=== PATIENT | male | born 1990 | race Caucasian/White ===

== ENCOUNTER 2016-11-20 21:05 | Emergency (ER) | payer SELFPAY ==
[~2016-11-20] VITALS: Ht 177.8 cm; Wt 90.7 kg
[~2016-11-20 21:05] MED LIST: ALBUTEROL0.09 MG/A2 IH; AMOXICILLIN500 MG PO; ANAPROX DS550 MG PO; ANTIVERT25 MG PO; ATARAX25 MG PO; ATIVAN0.5 MG PO; AUGMENTIN 875 M1 TAB PO; AUGMENTIN 875-875 MG PO; AUGMENTIN 875875 MG PO; BACTRIM DS 8001 TA1 PO; CEPHALEXIN500 M1 PO; CIPRO500 MG PO; CIPROFLOXACIN500 MG PO; CLARITIN10 MG PO; DIFLUCAN100 MG PO; DOXYCYCLINE HY100 M3 PO; DOXYCYCLINE MO100 MG PO; HYDROCODONE BIT1 T11 PO; IBU-8800 MG PO; KEFLEX500 M1 PO; KEFLEX500 MG PO; MEDROL DOSEPAK4 MG PO; MOTRIN800 MG PO; Motrin,Rufen800 MG PO; NAPROSYN500 MG PO; NKHM; NO DAILY MEDS; Orphenadrine C100 MG PO; PREDNISONE20 M1 PO; PREDNISONE20 MG PO; PROAIR HFA8.5 GM INH; PROVENTIL0.09 MG/AC IH; SEPTRA DS 800 M1 TAB PO; TORADOL10 MG PO; TRAMADOL HCL50 MG PO; VICODIN 5/500 505 MG PO; VICODIN 500 MG-1 TAB PO; VISTARIL25 MG PO; VOLTAREN50 M1 PO; ZANTAC150 MG PO; ZITHROMAX Z PA250 MG PO; ZOFRAN ODT4 MG SL; ZOFRAN ODT8 MG PO
[2016-11-20 21:24] VITALS: BP 162/82
== END 2016-11-20 23:27 | disposition home or self-care (01) ==
LOC: ED 21:05
DX: Z11.3 Encounter for screening for infections with a predominantly sexual mode of transmission (principal); L24.5 Irritant contact dermatitis due to other chemical products; Z87.891 Personal history of nicotine dependence

== ENCOUNTER → 2017-01-13 | Outpatient (CLI) | payer OTHER | END | disposition home or self-care (01) | LOC: RAD 11:49 | DX: M48.07 Spinal stenosis, lumbosacral region (principal); M43.17 Spondylolisthesis, lumbosacral region; M43.16 Spondylolisthesis, lumbar region ==

== ENCOUNTER 2017-02-13 13:49 | Emergency (ER) | payer SELFPAY ==
[~2017-02-13] VITALS: Ht 177.8 cm; Wt 77.1 kg
[2017-02-13 13:54] VITALS: BP 148/90
[2017-02-13] MEDS ORDERED: Motrin,Rufen800 MG PO (16:17)
== END 2017-02-13 16:25 | disposition home or self-care (01) ==
LOC: ED 13:49
DX: S30.0XXA Contusion of lower back and pelvis, initial encounter (principal); R21 Rash and other nonspecific skin eruption; Z87.891 Personal history of nicotine dependence; W10.8XXA Fall (on) (from) other stairs and steps, initial encounter; Y93.89 Activity, other specified; Y92.89 Other specified places as the place of occurrence of the external cause; Y99.9 Unspecified external cause status

== ENCOUNTER 2017-06-06 17:39 | Emergency (ER) | payer OTHER ==
[~2017-06-06] VITALS: Wt 80.7 kg
[2017-06-06 17:51] VITALS: BP 130/84
[2017-06-06] MEDS ORDERED: NAPROSYN500 MG PO (17:54)
[2017-06-06] MEDS ORDERED: CHLORZOXAZONE500 M2 PO (17:54)
== END 2017-06-06 19:48 | disposition home or self-care (01) ==
LOC: ED 17:39
DX: M54.42 Lumbago with sciatica, left side (principal); R03.0 Elevated blood-pressure reading, without diagnosis of hypertension; Z87.891 Personal history of nicotine dependence

== ENCOUNTER 2017-07-06 11:50 | Emergency (ER) | payer SELFPAY ==
[~2017-07-06] VITALS: Ht 180.3 cm; Wt 81.6 kg
[~2017-07-06 11:50] MED LIST changes: +CHLORZOXAZONE500 M2 PO
[2017-07-06 11:57] VITALS: BP 124/85
[2017-07-06] MEDS ORDERED: ZITHROMAX250 MG PO (12:22)
== END 2017-07-06 12:30 | disposition home or self-care (01) ==
LOC: ED 11:50
DX: Z20.2 Contact with and (suspected) exposure to infections with a predominantly sexual mode of transmission (principal); Z87.891 Personal history of nicotine dependence; Z79.899 Other long term (current) drug therapy

== ENCOUNTER 2017-08-14 19:18 | Emergency (ER) | payer SELFPAY ==
[~2017-08-14] VITALS: Ht 180.3 cm; Wt 81.6 kg
[~2017-08-14 19:18] MED LIST changes: +ZITHROMAX250 MG PO
[2017-08-14 19:22] VITALS: BP 124/91
[2017-08-14] MEDS ORDERED: MEDROL DOSEPAK4 MG PO (19:36)
[2017-08-14 20:18] LABS: BILIRUBIN NEGATIVE (NEGATIVE); BLOOD NEGATIVE (NEGATIVE); CLARITY CLEAR (CLEAR); COLOR YELLOW (YELLOW); GLUCOSE NEGATIVE (NEGATIVE); KETONE NEGATIVE (NEGATIVE); LEUKO ESTERASE NEGATIVE (NEGATIVE); NITRITE NEGATIVE (NEGATIVE); SPECIFIC GRAVITY 1.015 (1.005-1.030); UROBILINOGEN 0.2 E.U./dl (0.2-1.0)
[2017-08-14 20:31] LABS: BACTERIA TRACE; RBC 0-2 rbc/hpf (0-2); WBC 0-2 wbc/hpf (0-5)
== END 2017-08-14 20:35 | disposition home or self-care (01) ==
LOC: ED 19:18
PROVIDERS: Nurse Practitioner Family
DX: N48.89 Other specified disorders of penis (principal); Z79.899 Other long term (current) drug therapy

== ENCOUNTER 2017-08-17 15:25 | Emergency (ER) | payer SELFPAY ==
[~2017-08-17] VITALS: Ht 180.3 cm; Wt 81.6 kg
[2017-08-17 15:25] VITALS: BP 143/76
== END 2017-08-17 16:42 | disposition home or self-care (01) ==
LOC: ED 15:25
DX: R21 Rash and other nonspecific skin eruption (principal); Z87.891 Personal history of nicotine dependence

== ENCOUNTER 2017-10-01 07:41 | Emergency (ER) | payer SELFPAY ==
[~2017-10-01] VITALS: Ht 180.3 cm; Wt 82.6 kg
[2017-10-01 07:45] VITALS: BP 132/80
[2017-10-01 08:28] LABS: BASO % 0.5 % (0.0-1.0); EOS # 0.1 10*3/uL (0.0-0.4); EOS % 1.9 % (1.0-4.0); HEMATOCRIT 41.7 % (42.0-52.0); HEMOGLOBIN 14.1 g/dl (14.0-18.0); LYMPH % 27.3 % (27.0-41.0); MEAN CELL VOLUME 88.2 fl (80.0-94.0); MEAN CORPUSCULAR HGB 29.8 pg (27.0-31.0); MEAN CORPUSCULAR HGB CONC 33.8 g/dl (33.0-37.0); MEAN PLATELET VOLUME 10.5 fl (9.6-12.3); MONO # 0.7 10*3/uL (0.1-1.0); MONO % 9.2 % (3.0-9.0); NEUT # 4.4 10*3/uL (2.3-7.9); PLATELET COUNT AUTOMATED 169 10*3/uL (130-400); RED BLOOD COUNT 4.73 10*6/uL (4.50-5.90); RED CELL DISTRI WIDTH 11.9 % (0-14.5); WHITE BLOOD COUNT 7.3 10*3/uL (4.8-10.8)
[2017-10-01 08:37] LABS: ACT PARTIAL THROMBO TIME 25.5 SECONDS (20.8-31.5)
[2017-10-01 08:44] LABS: ALBUMIN 4.1 gm/dl (3.1-4.5); ALKALINE PHOSPHATASE 67 U/L (45-117); BUN 14 mg/dl (7-24); CHLORIDE 105 mmol/L (98-107); CREATININE 1.07 mg/dL (0.70-1.30); SGOT/AST 24 IU/L (3-35); SGPT/ALT 39 U/L (12-78); SODIUM 140 mmol/L (136-145); TOTAL PROTEIN 7.1 gm/dL (6.4-8.2)
[2017-10-01 08:53] LABS: TROPONIN I < 0.015 ng/ml (<0.045)
== END 2017-10-01 09:37 | disposition home or self-care (01) ==
LOC: ED 07:41
PROVIDERS: Student in an Organized Health Care Education/Training Program
DX: R20.2 Paresthesia of skin (principal); F10.10 Alcohol abuse, uncomplicated; Z79.899 Other long term (current) drug therapy

== ENCOUNTER 2018-02-02 02:10 | Emergency (ER) | payer SELFPAY ==
[~2018-02-02] VITALS: Ht 177.8 cm; Wt 77.1 kg
[2018-02-02 02:10] VITALS: BP 140/84
[2018-02-02 02:40] LABS: BASO % 0.4 % (0.0-1.0); EOS # 0.2 10*3/uL (0.0-0.4); EOS % 2.1 % (1.0-4.0); HEMATOCRIT 43.8 % (42.0-52.0); HEMOGLOBIN 14.9 g/dl (14.0-18.0); LYMPH # 3.2 10*3/uL (1.3-4.4); LYMPH % 33.9 % (27.0-41.0); MEAN CELL VOLUME 87.1 fl (80.0-94.0); MEAN CORPUSCULAR HGB 29.6 pg (27.0-31.0); MEAN PLATELET VOLUME 10.6 fl (9.6-12.3); MONO # 1.1 10*3/uL (0.1-1.0); NEUT % 52.2 % (47.0-73.0); PLATELET COUNT AUTOMATED 208 10*3/uL (130-400); RED BLOOD COUNT 5.03 10*6/uL (4.50-5.90); RED CELL DISTRI WIDTH 12.2 % (0-14.5); WHITE BLOOD COUNT 9.6 10*3/uL (4.8-10.8)
[2018-02-02 02:54] LABS: ALKALINE PHOSPHATASE 70 U/L (45-117); BUN 17 mg/dl (7-24); CHLORIDE 106 mmol/L (98-107); CREATININE 1.06 mg/dL (0.70-1.30); LIPASE 137 U/L (73-393); POTASSIUM 3.7 mmol/L (3.5-5.1); SGOT/AST 45 IU/L (3-35); SGPT/ALT 87 U/L (12-78); SODIUM 143 mmol/L (136-145); TOTAL PROTEIN 7.6 gm/dL (6.4-8.2)
[2018-02-02] MEDS ORDERED: OMEPRAZOLE MAGN20 MG PO (04:34)
== END 2018-02-02 05:11 | disposition home or self-care (01) ==
LOC: ED 02:10
PROVIDERS: Student in an Organized Health Care Education/Training Program
DX: R10.13 Epigastric pain (principal); Z87.891 Personal history of nicotine dependence

== ENCOUNTER 2018-06-06 16:18 | Emergency (ER) | payer SELFPAY ==
[~2018-06-06] VITALS: Ht 180.3 cm; Wt 83.9 kg
[2018-06-06 16:18] VITALS: BP 138/90
[~2018-06-06 16:18] MED LIST changes: +OMEPRAZOLE MAGN20 MG PO
[2018-06-06] MEDS ORDERED: SEPTDS PO (16:46)
[2018-06-06] MEDS ORDERED: KEFLEX500 M1 PO (16:46)
== END 2018-06-06 16:51 | disposition home or self-care (01) ==
LOC: ED 16:18
DX: L73.9 Follicular disorder, unspecified (principal); Z87.891 Personal history of nicotine dependence; Z79.899 Other long term (current) drug therapy

== ENCOUNTER 2019-01-22 20:09 | Emergency (ER) | payer SELFPAY ==
[~2019-01-22] VITALS: Ht 180.3 cm; Wt 83.9 kg
[~2019-01-22 20:09] MED LIST changes: +SEPTDS PO
[2019-01-22 20:10] VITALS: BP 134/79
[2019-01-22] MEDS ORDERED: IBU600 M1 PO (20:51)
== END 2019-01-22 21:06 | disposition home or self-care (01) ==
LOC: ED 20:09
DX: L72.3 Sebaceous cyst (principal); J35.8 Other chronic diseases of tonsils and adenoids; Z87.891 Personal history of nicotine dependence; Z79.2 Long term (current) use of antibiotics; Z79.899 Other long term (current) drug therapy

== ENCOUNTER 2019-02-16 14:28 | Emergency (ER) | payer SELFPAY ==
[~2019-02-16] VITALS: Ht 180.3 cm; Wt 86.2 kg
[~2019-02-16 14:28] MED LIST changes: +IBU600 M1 PO
[2019-02-16 14:31] VITALS: BP 128/90
[2019-02-16 14:52] LABS: BILIRUBIN NEGATIVE (NEGATIVE); BLOOD NEGATIVE (NEGATIVE); CLARITY CLEAR (CLEAR); COLOR YELLOW (YELLOW); GLUCOSE NEGATIVE (NEGATIVE); KETONE NEGATIVE (NEGATIVE); LEUKO ESTERASE NEGATIVE (NEGATIVE); NITRITE NEGATIVE (NEGATIVE); PH 6.5 (5.0-9.0); UROBILINOGEN 0.2 E.U./dl (0.2-1.0)
[2019-02-16] MEDS ORDERED: DOXYCYCLINE100 M3 PO (14:53)
[2019-02-16 15:21] LABS: BACTERIA TRACE
== END 2019-02-16 15:23 | disposition home or self-care (01) ==
LOC: ED 14:28
PROVIDERS: Physician Assistant
DX: Z20.2 Contact with and (suspected) exposure to infections with a predominantly sexual mode of transmission (principal)

== ENCOUNTER 2019-09-20 23:25 | Emergency (ER) | payer SELFPAY ==
[~2019-09-20] VITALS: Ht 177.8 cm; Wt 83.9 kg
[~2019-09-20 23:25] MED LIST changes: +DOXYCYCLINE100 M3 PO
[2019-09-21 00:01] LABS: BASO % 0.4 % (0.0-1.0); EOS # 0.1 10*3/uL (0.0-0.4); EOS % 1.6 % (1.0-4.0); HEMATOCRIT 44.8 % (42.0-52.0); LYMPH # 2.5 10*3/uL (1.3-4.4); LYMPH % 30.8 % (27.0-41.0); MEAN CELL VOLUME 88.2 fl (80.0-94.0); MEAN CORPUSCULAR HGB 30.1 pg (27.0-31.0); MEAN CORPUSCULAR HGB CONC 34.2 g/dl (33.0-37.0); MEAN PLATELET VOLUME 10.2 fl (9.6-12.3); MONO # 0.9 10*3/uL (0.1-1.0); MONO % 10.8 % (3.0-9.0); NEUT # 4.6 10*3/uL (2.3-7.9); NEUT % 56.3 % (47.0-73.0); PLATELET COUNT AUTOMATED 241 10*3/uL (130-400); RED BLOOD COUNT 5.08 10*6/uL (4.50-5.90); RED CELL DISTRI WIDTH 12.1 % (0-14.5); WHITE BLOOD COUNT 8.1 10*3/uL (4.8-10.8)
[2019-09-21 00:11] LABS: ACT PARTIAL THROMBO TIME 27.1 SECONDS (20.0-32.1); INTERNATIONAL NORM RATIO 0.9 (2.0-3.5)
[2019-09-21 00:16] LABS: ALKALINE PHOSPHATASE 89 U/L (45-117); BUN 12 mg/dl (7-24); CHLORIDE 105 mmol/L (98-107); CREATININE 1.29 mg/dL (0.70-1.30); LIPASE 119 U/L (73-393); POTASSIUM 4.1 mmol/L (3.5-5.1); SGOT/AST 21 IU/L (3-35); SGPT/ALT 44 U/L (12-78); SODIUM 138 mmol/L (136-145); TOTAL PROTEIN 7.6 gm/dL (6.4-8.2)
[2019-09-21 00:18] LABS: TROPONIN I < 0.015 ng/ml (<0.045)
[2019-09-21 01:00] VITALS: BP 146/78
== END 2019-09-21 01:32 | disposition home or self-care (01) ==
LOC: ED 23:25
PROVIDERS: Nurse Practitioner Family
DX: M62.838 Other muscle spasm (principal); Z87.891 Personal history of nicotine dependence; R79.1 Abnormal coagulation profile

== ENCOUNTER 2019-11-20 08:52 | Emergency (ER) | payer SELFPAY ==
[~2019-11-20] VITALS: Ht 180.3 cm; Wt 83.9 kg
[2019-11-20 08:56] VITALS: BP 132/94
[2019-11-21] MEDS ORDERED: MYCOLOG CREAM 115 GM T (15:46)
[2019-11-21] MEDS ORDERED: VIBRAMYCIN100 MG PO (15:46)
== END 2019-11-20 09:18 | disposition home or self-care (01) ==
LOC: ED 08:52
DX: Z20.2 Contact with and (suspected) exposure to infections with a predominantly sexual mode of transmission (principal); Z79.899 Other long term (current) drug therapy

== ENCOUNTER 2019-11-21 13:06 | Emergency (ER) | payer SELFPAY ==
[2019-11-21 13:12] VITALS: BP 146/93
[2019-11-21] MEDS ORDERED: MYCOLOG CREAM 115 GM T (15:46)
[2019-11-21] MEDS ORDERED: VIBRAMYCIN100 MG PO (15:46)
== END 2019-11-21 15:57 | disposition home or self-care (01) ==
LOC: ED 13:06
DX: Z20.2 Contact with and (suspected) exposure to infections with a predominantly sexual mode of transmission (principal)

== ENCOUNTER 2019-12-26 01:59 | Emergency (ER) | payer SELFPAY ==
[~2019-12-26] VITALS: Wt 86.2 kg
[~2019-12-26 01:59] MED LIST changes: +MYCOLOG CREAM 115 GM T; +VIBRAMYCIN100 MG PO
[2019-12-26 02:04] VITALS: BP 134/101
== END 2019-12-26 03:30 | disposition home or self-care (01) ==
LOC: ED 01:59
DX: S05.02XA Injury of conjunctiva and corneal abrasion without foreign body, left eye, initial encounter (principal); Z87.891 Personal history of nicotine dependence; X58.XXXA Exposure to other specified factors, initial encounter; Y93.89 Activity, other specified; Y92.89 Other specified places as the place of occurrence of the external cause; Y99.8 Other external cause status

== ENCOUNTER 2020-10-15 13:48 | Emergency (ER) | payer SELFPAY ==
[~2020-10-15] VITALS: Ht 177.8 cm; Wt 83.9 kg
[2020-10-15 14:05] VITALS: BP 121/84
[2020-10-15 15:51] LABS: BASO % 0.4 % (0.0-1.0); EOS # 0.1 10*3/uL (0.0-0.4); EOS % 1.4 % (1.0-4.0); HEMATOCRIT 44.5 % (42.0-52.0); LYMPH # 1.8 10*3/uL (1.3-4.4); LYMPH % 25.6 % (27.0-41.0); MEAN CELL VOLUME 88.1 fl (80.0-94.0); MEAN CORPUSCULAR HGB 29.1 pg (27.0-31.0); MEAN PLATELET VOLUME 10.6 fl (9.6-12.3); MONO # 0.7 10*3/uL (0.1-1.0); MONO % 9.2 % (3.0-9.0); NEUT # 4.5 10*3/uL (2.3-7.9); NEUT % 63.1 % (47.0-73.0); PLATELET COUNT AUTOMATED 224 10*3/uL (130-400); RED BLOOD COUNT 5.05 10*6/uL (4.50-5.90); RED CELL DISTRI WIDTH 12.2 % (0-14.5); WHITE BLOOD COUNT 7.2 10*3/uL (4.8-10.8)
[2020-10-15 16:06] LABS: ALBUMIN 3.9 gm/dl (3.1-4.5); ALKALINE PHOSPHATASE 83 U/L (45-117); BUN 12 mg/dl (7-24); CHLORIDE 107 mmol/L (98-107); CREATININE 0.97 mg/dL (0.70-1.30); LIPASE 98 U/L (73-393); POTASSIUM 4.1 mmol/L (3.5-5.1); SGOT/AST 19 IU/L (3-35); SGPT/ALT 36 U/L (12-78); SODIUM 141 mmol/L (136-145); TOTAL PROTEIN 7.5 gm/dL (6.4-8.2)
== END 2020-10-15 17:14 | disposition home or self-care (01) ==
LOC: ED 13:48
PROVIDERS: Physician Assistant
DX: R10.84 Generalized abdominal pain (principal); R19.7 Diarrhea, unspecified; Z79.2 Long term (current) use of antibiotics; Z79.899 Other long term (current) drug therapy; Z87.891 Personal history of nicotine dependence

== ENCOUNTER 2020-11-11 14:13 | Emergency (ER) | payer SELFPAY ==
[~2020-11-11] VITALS: Ht 180.3 cm; Wt 83.9 kg
[2020-11-11 14:20] VITALS: BP 141/96
[2020-11-11 16:16] LABS: BILIRUBIN Negative (Negative); BLOOD Negative (Negative); CLARITY Clear (Clear); COLOR Dark Yellow (Yellow); GLUCOSE Negative (Negative); KETONE Trace (Negative); LEUKO ESTERASE Negative (Negative); NITRITE Negative (Negative); PH 5.5 (4.5-8.0); SPECIFIC GRAVITY >= 1.030 (1.001-1.030)
[2020-11-11 16:33] LABS: BACTERIA TRACE; EPITHELIAL CELLS 0-2; MUCOUS TRACE; RBC 0-2 rbc/hpf (0-2); WBC 0-2 wbc/hpf (0-5)
[2020-11-11] MEDS ORDERED: ANTIFUNGAL113 GM T (16:52)
[2020-11-11] MEDS ORDERED: CEPHALEXIN500 M1 PO (16:52)
== END 2020-11-11 17:13 | disposition home or self-care (01) ==
LOC: ED 14:13
PROVIDERS: Physician Assistant
DX: B35.6 Tinea cruris (principal); L73.9 Follicular disorder, unspecified; Z79.2 Long term (current) use of antibiotics; Z79.899 Other long term (current) drug therapy; Z87.891 Personal history of nicotine dependence

== ENCOUNTER 2021-01-21 09:22 | Emergency (ER) | payer SELFPAY ==
[~2021-01-21] VITALS: Ht 177.8 cm; Wt 86.2 kg
[~2021-01-21 09:22] MED LIST changes: +ANTIFUNGAL113 GM T
[2021-01-21 09:27] VITALS: BP 125/78
[2021-01-21] MEDS ORDERED: Motrin,Rufen800 MG PO (13:08)
== END 2021-01-21 13:10 | disposition home or self-care (01) ==
LOC: ED 09:22
DX: S16.1XXA Strain of muscle, fascia and tendon at neck level, initial encounter (principal); S40.012A Contusion of left shoulder, initial encounter; Z87.891 Personal history of nicotine dependence; W10.8XXA Fall (on) (from) other stairs and steps, initial encounter; Y93.89 Activity, other specified; Y92.89 Other specified places as the place of occurrence of the external cause; Y99.8 Other external cause status

== ENCOUNTER 2021-06-05 04:16 | Emergency (ER) | payer SELFPAY ==
[~2021-06-05] VITALS: Ht 180.3 cm; Wt 86.2 kg
[2021-06-05 04:23] VITALS: BP 129/92
[2021-06-05] MEDS ORDERED: CYCLOBENZAPRINE10 MG PO (06:37)
== END 2021-06-05 06:41 | disposition home or self-care (01) ==
LOC: ED 04:16
DX: S16.1XXA Strain of muscle, fascia and tendon at neck level, initial encounter (principal); Z87.891 Personal history of nicotine dependence; X58.XXXA Exposure to other specified factors, initial encounter; Y93.89 Activity, other specified; Y92.89 Other specified places as the place of occurrence of the external cause; Y99.8 Other external cause status

== ENCOUNTER 2021-06-23 21:59 | Emergency (ER) | payer SELFPAY ==
[~2021-06-23] VITALS: Ht 177.8 cm; Wt 88.5 kg
[~2021-06-23 21:59] MED LIST changes: +CYCLOBENZAPRINE10 MG PO
[2021-06-23 22:02] VITALS: BP 131/85
[2021-06-23 22:53] LABS: BUN 14 mg/dl (7-24); CHLORIDE 107 mmol/L (98-107); CREATININE 1.29 mg/dL (0.70-1.30); SODIUM 141 mmol/L (136-145)
[2021-06-23] MEDS ORDERED: SEPTDS PO (22:58)
[2021-06-23] MEDS ORDERED: CEPHALEXIN500 M1 PO (22:58)
[2021-06-23] MEDS ORDERED: CLARITIN10 MG PO (23:02)
== END 2021-06-23 23:05 | disposition home or self-care (01) ==
LOC: ED 21:59
PROVIDERS: Physician Assistant
DX: H66.92 Otitis media, unspecified, left ear (principal); L02.818 Cutaneous abscess of other sites; Z87.891 Personal history of nicotine dependence

== ENCOUNTER → 2021-11-03 | Outpatient (CLI) | payer OTHER ==
[2021-11-03 11:07] LABS: HEMATOCRIT 44.7 % (42.0-52.0); MEAN CELL VOLUME 88.9 fl (80.0-94.0); MEAN CORPUSCULAR HGB CONC 33.8 g/dl (33.0-37.0); MEAN PLATELET VOLUME 10.5 fl (9.6-12.3); RED BLOOD COUNT 5.03 10*6/uL (4.50-5.90); RED CELL DISTRI WIDTH 12.1 % (0-14.5); WHITE BLOOD COUNT 7.6 10*3/uL (4.8-10.8)
[2021-11-03 11:32] LABS: BUN 13 mg/dl (7-24); CHLORIDE 105 mmol/L (98-107); CHOLESTEROL 198 mg/dL (<200); CREATININE 0.98 mg/dL (0.70-1.30); POTASSIUM 4.6 mmol/L (3.5-5.1); SGOT/AST 21 IU/L (3-35); SGPT/ALT 39 U/L (12-78); SODIUM 140 mmol/L (136-145); TRIGLYCERIDES 270 mg/dl (<150)
[2021-11-03 11:33] LABS: ALKALINE PHOSPHATASE 79 U/L (45-117); TOTAL PROTEIN 7.2 gm/dL (6.4-8.2)
[2021-11-03 11:36] LABS: FREE T4 0.87 ng/dl (0.76-1.46); LDL CHOLESTEROL 102 mg/dL (9-159)
== END | disposition home or self-care (01) ==
LOC: LAB 10:36
PROVIDERS: ATTEND Family Medicine
DX: Z00.00 Encounter for general adult medical examination without abnormal findings (principal); R00.2 Palpitations

== ENCOUNTER 2021-11-05 19:52 | Emergency (ER) | payer OTHER ==
[~2021-11-05] VITALS: Ht 180.3 cm; Wt 81.6 kg
[2021-11-05 21:38] LABS: BASO % 0.4 % (0.0-1.0); EOS # 0.1 10*3/uL (0.0-0.4); EOS % 1.1 % (1.0-4.0); HEMATOCRIT 44.4 % (42.0-52.0); LYMPH # 2.2 10*3/uL (1.3-4.4); LYMPH % 19.7 % (27.0-41.0); MEAN CELL VOLUME 88.1 fl (80.0-94.0); MEAN CORPUSCULAR HGB 28.8 pg (27.0-31.0); MEAN CORPUSCULAR HGB CONC 32.7 g/dl (33.0-37.0); MEAN PLATELET VOLUME 10.2 fl (9.6-12.3); MONO % 8.9 % (3.0-9.0); NEUT # 7.6 10*3/uL (2.3-7.9); NEUT % 69.6 % (47.0-73.0); PLATELET COUNT AUTOMATED 224 10*3/uL (130-400); RED BLOOD COUNT 5.04 10*6/uL (4.50-5.90); RED CELL DISTRI WIDTH 12.1 % (0-14.5); WHITE BLOOD COUNT 10.9 10*3/uL (4.8-10.8)
[2021-11-05 21:50] LABS: ACT PARTIAL THROMBO TIME 25.6 SECONDS (20.0-32.1)
[2021-11-05 21:54] LABS: ALKALINE PHOSPHATASE 62 U/L (45-117); BUN 18 mg/dl (7-24); CHLORIDE 110 mmol/L (98-107); CREATININE 1.14 mg/dL (0.70-1.30); LIPASE 122 U/L (73-393); POTASSIUM 4.4 mmol/L (3.5-5.1); SGOT/AST 32 IU/L (3-35); SGPT/ALT 32 U/L (12-78); SODIUM 144 mmol/L (136-145); TOTAL PROTEIN 5.8 gm/dL (6.4-8.2)
[2021-11-05 23:22] VITALS: BP 123/67
== END 2021-11-05 23:55 | disposition home or self-care (01) ==
LOC: ED 19:52
PROVIDERS: Physician Assistant
DX: R07.89 Other chest pain (principal); F41.9 Anxiety disorder, unspecified; Z87.891 Personal history of nicotine dependence; Z79.899 Other long term (current) drug therapy

== ENCOUNTER 2022-04-16 21:37 | Emergency (ER) | payer OTHER ==
[~2022-04-16] VITALS: Ht 180.3 cm; Wt 86.2 kg
[2022-04-16 21:48] VITALS: BP 128/78
[2022-04-17 00:45] LABS: BASO % 0.4 % (0.0-1.0); EOS # 0.2 10*3/uL (0.0-0.4); EOS % 2.3 % (1.0-4.0); HEMATOCRIT 41.9 % (42.0-52.0); LYMPH # 2.7 10*3/uL (1.3-4.4); LYMPH % 33.3 % (27.0-41.0); MEAN CELL VOLUME 87.5 fl (80.0-94.0); MEAN CORPUSCULAR HGB 29.2 pg (27.0-31.0); MEAN CORPUSCULAR HGB CONC 33.4 g/dl (33.0-37.0); MEAN PLATELET VOLUME 10.1 fl (9.6-12.3); MONO # 0.6 10*3/uL (0.1-1.0); MONO % 7.4 % (3.0-9.0); NEUT # 4.6 10*3/uL (2.3-7.9); NEUT % 56.2 % (47.0-73.0); PLATELET COUNT AUTOMATED 249 10*3/uL (130-400); RED BLOOD COUNT 4.79 10*6/uL (4.50-5.90); RED CELL DISTRI WIDTH 12.4 % (0-14.5); WHITE BLOOD COUNT 8.2 10*3/uL (4.8-10.8)
[2022-04-17 00:59] LABS: ACT PARTIAL THROMBO TIME 27.6 SECONDS (20.0-32.1); INTERNATIONAL NORM RATIO 0.9 (2.0-3.5)
[2022-04-17 01:07] LABS: ALKALINE PHOSPHATASE 91 U/L (46-116); BUN 12 mg/dl (9-23); CHLORIDE 103 mmol/L (98-107); LIPASE 39 U/L (12-53); POTASSIUM 3.9 mmol/L (3.4-5.1); SGPT/ALT 25 U/L (10-49)
[2022-04-17 02:04] LABS: BILIRUBIN Negative (Negative); BLOOD Negative (Negative); CLARITY Clear (Clear); COLOR Yellow (Yellow); GLUCOSE Negative (Negative); KETONE Negative (Negative); LEUKO ESTERASE Negative (Negative); NITRITE Negative (Negative); PH 6.5 (4.5-8.0); SPECIFIC GRAVITY >= 1.030 (1.001-1.030); UROBILINOGEN 0.2 E.U./dl (0.0-1.0)
[2022-04-17 02:19] LABS: EPITHELIAL CELLS 0-2; WBC 0-2 wbc/hpf (0-5)
== END 2022-04-17 03:59 | disposition home or self-care (01) ==
LOC: ED 21:37
PROVIDERS: Family Medicine
DX: R10.31 Right lower quadrant pain (principal); Z87.891 Personal history of nicotine dependence; F10.20 Alcohol dependence, uncomplicated

== ENCOUNTER 2022-05-10 18:23 | Emergency (ER) | payer OTHER ==
[~2022-05-10] VITALS: Ht 180.3 cm; Wt 83.9 kg
[2022-05-10 19:02] VITALS: BP 139/94
[2022-05-10] MEDS ORDERED: CYCLOBENZAPRINE10 MG PO (21:44)
[2022-05-10] MEDS ORDERED: MEDROL DOSEPAK4 MG PO (21:44)
== END 2022-05-10 21:47 | disposition home or self-care (01) ==
LOC: ED 18:23
DX: S39.012A Strain of muscle, fascia and tendon of lower back, initial encounter (principal); F10.20 Alcohol dependence, uncomplicated; Z87.891 Personal history of nicotine dependence; X50.0XXA Overexertion from strenuous movement or load, initial encounter; Y93.89 Activity, other specified; Y92.89 Other specified places as the place of occurrence of the external cause; Y99.0 Civilian activity done for income or pay

== ENCOUNTER → 2022-06-17 | Outpatient (CLI) | payer OTHER ==
[2022-06-17 14:16] LABS: HEMATOCRIT 42.2 % (42.0-52.0); MEAN CELL VOLUME 87.9 fl (80.0-94.0); MEAN CORPUSCULAR HGB 29.2 pg (27.0-31.0); MEAN CORPUSCULAR HGB CONC 33.2 g/dl (33.0-37.0); MEAN PLATELET VOLUME 10.1 fl (9.6-12.3); RED BLOOD COUNT 4.8 10*6/uL (4.50-5.90); WHITE BLOOD COUNT 6.6 10*3/uL (4.8-10.8)
[2022-06-17 14:39] LABS: ALKALINE PHOSPHATASE 73 U/L (46-116); BUN 10 mg/dl (9-23); CHLORIDE 103 mmol/L (98-107); POTASSIUM 4.3 mmol/L (3.4-5.1); SGPT/ALT 34 U/L (10-49)
== END | disposition home or self-care (01) ==
LOC: LAB 13:51
PROVIDERS: ATTEND Family Medicine
DX: N30.90 Cystitis, unspecified without hematuria (principal); R10.9 Unspecified abdominal pain

== ENCOUNTER 2022-10-15 08:32 | Emergency (ER) | payer OTHER ==
[~2022-10-15] VITALS: Wt 86.2 kg
[2022-10-15 08:40] VITALS: BP 135/74
[2022-10-15] MEDS ORDERED: MYCOLOG CREAM 115 GM T (09:00)
[2022-10-15] MEDS ORDERED: CEPHALEXIN500 M1 PO (09:00)
[2022-10-15 09:23] LABS: BILIRUBIN Negative (Negative); BLOOD Negative (Negative); CLARITY Clear (Clear); COLOR Yellow (Yellow); GLUCOSE Negative (Negative); KETONE Negative (Negative); LEUKO ESTERASE Negative (Negative); NITRITE Negative (Negative); PH 6.5 (4.5-8.0); SPECIFIC GRAVITY 1.015 (1.001-1.030)
[2022-10-15 09:33] LABS: MUCOUS TRACE; RBC 0-2 rbc/hpf (0-2)
== END 2022-10-15 09:44 | disposition home or self-care (01) ==
LOC: ED 08:32
PROVIDERS: Emergency Medicine
DX: Z87.891 Personal history of nicotine dependence (principal); B35.6 Tinea cruris; Z20.2 Contact with and (suspected) exposure to infections with a predominantly sexual mode of transmission

== ENCOUNTER → 2022-11-15 | Outpatient (CLI) | payer OTHER | END | disposition home or self-care (01) | LOC: RAD 12:50 | PROVIDERS: ATTEND Family Medicine | DX: M25.512 Pain in left shoulder (principal) ==

== ENCOUNTER → 2023-07-06 | Outpatient (CLI) | payer OTHER ==
[2023-07-06 13:42] LABS: BASO % 0.4 % (0.0-1.0); EOS # 0.1 10*3/uL (0.0-0.4); EOS % 1.2 % (1.0-4.0); HEMATOCRIT 46.7 % (42.0-52.0); LYMPH # 1.9 10*3/uL (1.3-4.4); LYMPH % 27.4 % (27.0-41.0); MEAN CELL VOLUME 87.5 fl (80.0-94.0); MEAN CORPUSCULAR HGB 29.2 pg (27.0-31.0); MEAN CORPUSCULAR HGB CONC 33.4 g/dl (33.0-37.0); MEAN PLATELET VOLUME 10.1 fl (9.6-12.3); MONO # 0.6 10*3/uL (0.1-1.0); MONO % 8.3 % (3.0-9.0); NEUT # 4.3 10*3/uL (2.3-7.9); NEUT % 62.3 % (47.0-73.0); PLATELET COUNT AUTOMATED 241 10*3/uL (130-400); RED BLOOD COUNT 5.34 10*6/uL (4.50-5.90); RED CELL DISTRI WIDTH 12.8 % (0-14.5); WHITE BLOOD COUNT 6.9 10*3/uL (4.8-10.8)
[2023-07-06 14:23] LABS: ALKALINE PHOSPHATASE 97 U/L (46-116); BUN 8 mg/dl (9-23); CHLORIDE 103 mmol/L (98-107); POTASSIUM 4.3 mmol/L (3.4-5.1); SGPT/ALT 31 U/L (5-49)
[2023-07-07 14:09] LABS: t-TRANSGLUTAMINASE (tTG) IGA <2 U/mL (0-3); t-TRANSGLUTAMINASE (tTG) IgG 3 U/mL (0-5)
== END | disposition home or self-care (01) ==
LOC: LAB 13:22
PROVIDERS: ATTEND Nurse Practitioner Family
DX: R10.84 Generalized abdominal pain (principal); K90.9 Intestinal malabsorption, unspecified

== ENCOUNTER 2023-11-01 23:18 | Emergency (ER) | payer OTHER ==
[~2023-11-01] VITALS: Ht 180.3 cm; Wt 94.3 kg
[2023-11-02 01:27] LABS: BASO % 0.3 % (0.0-1.0); EOS # 0.1 10*3/uL (0.0-0.4); EOS % 0.7 % (1.0-4.0); LYMPH # 2.1 10*3/uL (1.3-4.4); LYMPH % 21.9 % (27.0-41.0); MEAN CELL VOLUME 90.2 fl (80.0-94.0); MEAN CORPUSCULAR HGB 29.7 pg (27.0-31.0); MEAN PLATELET VOLUME 10.6 fl (9.6-12.3); MONO # 0.6 10*3/uL (0.1-1.0); MONO % 6.7 % (3.0-9.0); NEUT # 6.6 10*3/uL (2.3-7.9); NEUT % 70.2 % (47.0-73.0); PLATELET COUNT AUTOMATED 216 10*3/uL (130-400); RED BLOOD COUNT 4.88 10*6/uL (4.50-5.90); RED CELL DISTRI WIDTH 12.3 % (0-14.5); WHITE BLOOD COUNT 9.4 10*3/uL (4.8-10.8)
[2023-11-02 01:44] LABS: ACT PARTIAL THROMBO TIME 26.2 SECONDS (20.0-32.1)
[2023-11-02 01:48] LABS: ALKALINE PHOSPHATASE 82 U/L (46-116); BUN 17 mg/dl (9-23); CHLORIDE 106 mmol/L (98-107); POTASSIUM 4.5 mmol/L (3.4-5.1); SGPT/ALT 30 U/L (5-49); TOTAL PROTEIN 7.2 gm/dL (6.0-8.0)
[2023-11-02 04:15] VITALS: BP 125/61
== END 2023-11-02 04:16 | disposition left against medical advice (07) ==
LOC: ED 23:18
PROVIDERS: Emergency Medicine
DX: R07.89 Other chest pain (principal); F41.9 Anxiety disorder, unspecified; Z79.2 Long term (current) use of antibiotics; Z79.899 Other long term (current) drug therapy; Z87.891 Personal history of nicotine dependence

== ENCOUNTER → 2023-11-02 | Outpatient (CLI) | payer OTHER ==
[2023-11-02 16:16] LABS: HEMATOCRIT 44.3 % (42.0-52.0); MEAN CELL VOLUME 87.9 fl (80.0-94.0); MEAN CORPUSCULAR HGB 30.2 pg (27.0-31.0); MEAN CORPUSCULAR HGB CONC 34.3 g/dl (33.0-37.0); MEAN PLATELET VOLUME 10.9 fl (9.6-12.3); RED BLOOD COUNT 5.04 10*6/uL (4.50-5.90); RED CELL DISTRI WIDTH 12.5 % (0-14.5); WHITE BLOOD COUNT 6.5 10*3/uL (4.8-10.8)
[2023-11-02 16:38] LABS: ALKALINE PHOSPHATASE 87 U/L (46-116); BUN 17 mg/dl (9-23); CHLORIDE 105 mmol/L (98-107); CHOLESTEROL 179 mg/dL (<200); LDL CHOLESTEROL 102 mg/dL (9-159); POTASSIUM 4.2 mmol/L (3.4-5.1); SGPT/ALT 32 U/L (5-49); TOTAL PROTEIN 7.6 gm/dL (6.0-8.0); TRIGLYCERIDES 217 mg/dl (<150)
[2023-11-05 05:06] LABS: TESTOSTERONE FREE, (DIRECT) 11.6 pg/mL (8.7-25.1)
== END | disposition home or self-care (01) ==
LOC: LAB 15:19
PROVIDERS: ATTEND Family Medicine
DX: Z13.220 Encounter for screening for lipoid disorders (principal); N52.9 Male erectile dysfunction, unspecified; F41.1 Generalized anxiety disorder; R41.9 Unspecified symptoms and signs involving cognitive functions and awareness; E55.9 Vitamin D deficiency, unspecified

== ENCOUNTER 2024-02-23 09:08 | Emergency (ER) | payer OTHER ==
[~2024-02-23] VITALS: Ht 180.3 cm; Wt 90.7 kg
[2024-02-23 09:20] VITALS: BP 120/88
[2024-02-23] MEDS ORDERED: Acetaminophen/Oxycodone 5 MG/325 MG TABLET PO ONE (09:30)
[2024-02-23] MEDS ORDERED: MELOXICAM15 MG PO (09:40)
== END 2024-02-23 10:30 | disposition home or self-care (01) ==
LOC: ED 09:08
DX: S93.401A Sprain of unspecified ligament of right ankle, initial encounter (principal); S93.601A Unspecified sprain of right foot, initial encounter; F90.9 Attention-deficit hyperactivity disorder, unspecified type; F31.9 Bipolar disorder, unspecified; E87.6 Hypokalemia; Z87.442 Personal history of urinary calculi; X50.1XXA Overexertion from prolonged static or awkward postures, initial encounter; Y93.89 Activity, other specified; Y92.89 Other specified places as the place of occurrence of the external cause; Y99.8 Other external cause status

== ENCOUNTER 2024-10-12 08:02 | Emergency (ER) | payer OTHER ==
[~2024-10-12] VITALS: Ht 180.3 cm; Wt 92.5 kg
[~2024-10-12 08:02] MED LIST changes: +MELOXICAM15 MG PO
[2024-10-12 08:08] VITALS: BP 128/84
[2024-10-12] MEDS ORDERED: Loperamide Hydrochloride 2 MG CAP PO ONE (09:45)
[2024-10-12] MEDS ORDERED: SODIUM CHLORIDE 0.9% 1,000 ML IV ONE (09:45)
[2024-10-12] MEDS ORDERED: Ketorolac Tromethamine 15 MG/ML VIAL IV ONE (09:45)
[2024-10-12 09:58] LABS: BASO % 0.5 % (0.0-1.0); EOS # 0.1 10*3/uL (0.0-0.4); EOS % 1.9 % (1.0-4.0); MEAN CELL VOLUME 87.9 fl (80.0-94.0); MEAN CORPUSCULAR HGB 29.3 pg (27.0-31.0); MEAN CORPUSCULAR HGB CONC 33.3 g/dl (33.0-37.0); MEAN PLATELET VOLUME 10.2 fl (9.6-12.3); MONO # 0.6 10*3/uL (0.1-1.0); NEUT % 52.7 % (47.0-73.0); PLATELET COUNT AUTOMATED 182 10*3/uL (130-400); RED BLOOD COUNT 4.78 10*6/uL (4.50-5.90); RED CELL DISTRI WIDTH 12.7 % (0-14.5); WHITE BLOOD COUNT 5.7 10*3/uL (4.8-10.8)
[2024-10-12 10:16] LABS: BUN 10 mg/dl (9-23); CHLORIDE 104 mmol/L (98-107); LIPASE 33 U/L (12-53); POTASSIUM 4.4 mmol/L (3.4-5.1)
[2024-10-12] MEDS ORDERED: Ciprofloxacin Hydrochloride 500 MG TAB PO ONE (12:00)
[2024-10-12] MEDS ORDERED: metroNIDAZOLE 500 MG TAB PO ONE (12:00)
[2024-10-12] MEDS ORDERED: METRONIDAZOLE500 M1 PO (12:02)
[2024-10-12] MEDS ORDERED: DICYCLOMINE HYD20 MG PO (12:02)
[2024-10-12] MEDS ORDERED: CIPRO500 MG PO (12:02)
== END 2024-10-12 12:50 | disposition home or self-care (01) ==
LOC: ED 08:02
PROVIDERS: Emergency Medicine
DX: K52.9 Noninfective gastroenteritis and colitis, unspecified (principal); F31.9 Bipolar disorder, unspecified

== ENCOUNTER 2025-03-05 07:48 | Emergency (ER) | payer OTHER ==
[~2025-03-05] VITALS: Ht 180.3 cm; Wt 98.9 kg
[~2025-03-05 07:48] MED LIST changes: +DICYCLOMINE HYD20 MG PO; +METRONIDAZOLE500 M1 PO
[2025-03-05 08:04] VITALS: BP 140/88
[2025-03-05] MEDS ORDERED: IBUPROFEN 800 MG TAB PO ONE (08:15)
[2025-03-05] MEDS ORDERED: ACETAMINOPHEN 325 MG TAB PO ONE (08:15)
[2025-03-05] MEDS ORDERED: METHOCARBAMOL750 M1 PO (09:37)
== END 2025-03-05 09:40 | disposition home or self-care (01) ==
LOC: ED 07:48
DX: J06.9 Acute upper respiratory infection, unspecified (principal); R50.9 Fever, unspecified; F31.9 Bipolar disorder, unspecified; Z87.891 Personal history of nicotine dependence; Z87.442 Personal history of urinary calculi; Z20.822 Contact with and (suspected) exposure to COVID-19